=== PATIENT | female | born 1980 | race Caucasian/White ===

== ENCOUNTER → 2018-09-14 | Outpatient (CLI) | payer MEDICAID ==
[2018-09-14 12:17] LABS: FREE T4 (FREE THYROXINE) 0.79 NG/DL (0.70-1.48)
--- NOTE | 2018-09-14 19:49 | Diagnostic Imaging Report ---
CLINICAL INDICATION: Patient with thyroid cysts. COMPARISONS: None. FINDINGS: THYROID NODULES: There is a 1.1 cm x 1.2 cm x 0.7 cm isoechoic/hypoechoic nodule involving the region of the isthmus. There are two subcentimeter hypoechoic nodules seen superiorly adjacent to the larger described nodule involving the isthmus. There are no other significant thyroid nodules seen. THYROID GLAND: Besides the thyroid nodules, the thyroid gland has normal size, shape and echogenicity. The right lobe measures 5.6 cm x 2.3 cm x 1.9 cm and the left lobe measures 5.4 cm x 1.6 cm x 1.9 cm in their three dimensions. ISTHMUS: The isthmus is upper limits of normal and measures 5.6 mm in thickness. IMPRESSION: There are three thyroid gland nodules involving the region of the isthmus with the largest one measuring 1.2 cm, as described above. Otherwise, the thyroid gland is unremarkable. Dictated on workstation # [id number]
== END ==
LOC: RAD 10:51
PROVIDERS: ATTEND Pediatrics
DX: E04.2 Nontoxic multinodular goiter (principal)
CPT/HCPCS: 36415; 76536; 84439; 84443

== ENCOUNTER 2018-10-15 11:39 | Emergency (ER) | payer MEDICAID ==
[~2018-10-15] VITALS: Ht 157.5 cm; Wt 65.8 kg
--- OUTSIDE RECORDS SUMMARY | 2018-10-15 11:43 | XMS REPORT | Continuity of Care Document ---
Author Organization Unknown Address Unknown Allergies There is no data. Medications There is no data. Problems There is no data. Procedures There is no data. Results Test Result Range SYPHILIS (RPR W/ REFLEX CONFIRMATION) - 08/28/18 11:15 RPR (DX) W/REFL TITER AND CONFIRMATORY TESTING NON-REACTIVE NON-REACTIVE HEP B SURFACE ANTIGEN - 08/28/18 11:15 HEPATITIS B SURFACE ANTIGEN NON-REACTIVE NON-REACTIVE HCG, QUANTITATIVE - 08/28/18 11:15 H[place], [place] [address] mIU/mL NRG RUBELLA IMMUNE STATUS - 08/28/18 11:15 RUBELLA ANTIBODY (IGG) 3.05 index NRG SUREPATH PAP RFX HPV mRNA E6/E7 - 08/28/18 13:36 CLINICAL INFORMATION: NRG LMP: NRG PREV. PAP: NRG PREV. 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 Visit Date/Time Discharge Status Pt. Type Provider Facility Loc./Unit Complaint [id number] 10/01/2018 09:45:00 10/01/2018 23:59:59 [id number] 10/01/2018 09:45:00 Document Registration [id number] 09/25/2018 10:30:00 Document Registration [id number] 08/28/2018 10:15:00 Document Registration
[2018-10-15] MEDS ORDERED: APAP 300 MG/CODEINE 30 MG (TYLENOL #3) TAB PO ONE (12:15)
[2018-10-15 12:21] LABS: BACTERIA,URINE FEW /HPF; BILIRUBIN,URINE NEGATIVE (NEGATIVE); CLARITY,URINE CLEAR; COLOR,URINE YELLOW; GLUCOSE, URINE (UA) NEGATIVE (NEGATIVE); KETONES,URINE NEGATIVE (NEGATIVE); LEUKOCYTE ESTERASE ,URINE NEGATIVE (NEGATIVE); NITRITE,URINE NEGATIVE (NEGATIVE); PH,URINE 6 (5-9); PROTEIN,URINE NEGATIVE (NEGATIVE); SQUAMOUS EPITHELIAL CELL,UR >50 /HPF; UROBILINOGEN,URINE 1 MG/DL (NORMAL)
[2018-10-15 12:25] LABS: BASOPHILS % (AUTO) 0 % (0-10); EOSINOPHILS # (AUTO) 0.1 10^3/uL (0.0-0.3); EOSINOPHILS % (AUTO) 1 % (0-10); HEMATOCRIT 36 % (35-52); HEMOGLOBIN 11.9 G/DL (11.5-16.0); LYMPHOCYTES # (AUTO) 1.9 X 10^3 (1.0-4.0); LYMPHOCYTES % (AUTO) 21 % (12-44); MEAN CORPUSCULAR HEMOGLOBIN 27 PG (25-34); MEAN CORPUSCULAR HGB CONC 33 G/DL (32-36); MEAN CORPUSCULAR VOLUME 82 FL (80-99); MEAN PLATELET VOLUME 9.5 FL (7.4-10.4); MONOCYTES # (AUTO) 0.5 X 10^3 (0.0-1.0); MONOCYTES % (AUTO) 5 % (0-12); NEUTROPHILS # (AUTO) 6.7 X 10^3 (1.8-7.8); NEUTROPHILS % (AUTO) 73 % (42-75); PLATELET COUNT 322 10^3/uL (130-400); RED CELL DISTRIBUTION WIDTH 12.8 % (10.0-14.5); WHITE BLOOD COUNT 9.2 10^3/uL (4.3-11.0)
[2018-10-15 12:44] LABS: BUN/CREATININE RATIO 10; CARBON DIOXIDE 19 MMOL/L (21-32); CHLORIDE 101 MMOL/L (98-107); CREATININE SERUM 0.51 MG/DL (0.60-1.30); GFR ESTIMATED > 60; GLUCOSE 110 MG/DL (70-105); POTASSIUM 3.7 MMOL/L (3.6-5.0); SODIUM 135 MMOL/L (135-145)
[2018-10-15 12:45] LABS: ALANINE AMINOTRANSFERASE 8 U/L (0-55); ALBUMIN 3.5 GM/DL (3.2-4.5); ALKALINE PHOSPHATASE 50 U/L (40-136); BILIRUBIN,TOTAL 0.2 MG/DL (0.1-1.0); TOTAL PROTEIN 6.5 GM/DL (6.4-8.2)
--- NOTE | 2018-10-15 12:51 | ED Abdominal Pain ---
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 STATES SHE IS 11 WEEKS AND SHE HAD EXPERIENCED SOME SPOTTING LAST WEEK. DENIES ANY SPOTTING AT THIS TIME BUT REPORTS THAT THE PAIN BEGAN YESTERDAY AND HAS PROGRESSED. Sepsis Screen: No Definite Risk Source of Information: Patient, Family Exam Limitations: No Limitations History of Present Illness Date Seen by Provider: Oct 15, 2018 Time Seen by Provider: 12:46 Initial Comments This 37 year-old G 10 P 7 female presents in the 11th week of her current gestation. The patient is complaining of left lower abdominal pain that began yesterday and has been quite intense. Patient had back pain approximately a week ago and went to her doctor's office for urinalysis. The patient subsequently experienced a slight amount of spotting which has spontaneously resolved. The patient denies associated dysuria, frequency, associated flank pain, nausea, vomiting, diarrhea, cough, fever or chill, headache or stiff neck, or radiation of the sharp left lower quadrant pain. The patient's pain is made worse by pushing on the abdomen. Allergies and Home Medications Allergies Coded Allergies: fentanyl (Verified Allergy, Unknown, 10/15/18) Patient states not an allergy but makes her loopy and tearful latex (Verified Allergy, Unknown, 10/15/18) morphine (Verified Allergy, Unknown, 10/15/18) Patient states not an allergy but makes her loopy and tearful sulfamethoxazole (Verified Allergy, Unknown, 10/15/18) trimethoprim (Verified Allergy, Unknown, 10/15/18) Patient Home Medication List Home Medication List Reviewed: Yes Review of Systems Review of Systems Constitutional: No chills EENTM: No Symptoms Reported Respiratory: Denies Cough, Denies SOA at Rest Cardiovascular: Denies Chest Pain, Denies Palpitations Gastrointestinal: See HPI, Abdominal Pain; Denies Diarrhea, Denies Nausea, Denies Vomiting Genitourinary: Denies Burning, Denies Drainage, Denies Frequency, Denies Flank Pain, Denies Hematuria Musculoskeletal: No back pain Skin: No change in color, No rash Psychiatric/Neurological: No Symptoms Reported Endocrine: No Symptoms Reported Hematologic/Lymphatic: No Symptoms Reported Past Ulwwzxu-Qzyuwm-Iwjedf Hx Past Med/Social Hx: Reviewed Nursing Past Med/Soc Hx Patient Social History Alcohol Use: Denies Use Recreational Drug Use: No Smoking Status: Never a Smoker 2nd Hand Smoke Exposure: No Recent Foreign Travel: No Contact w/Someone Who Travel: No Recent Infectious Disease Expo: No Recent Hopitalizations: No Physical Abuse: No Sexual Abuse: No Mistreated: No Fear: No Immunizations Up To Date Tetanus Booster (TDap): Less than 5yrs Seasonal Allergies Seasonal Allergies: No Past Medical History Surgeries: Yes Gallbladder Respiratory: No Cardiac: No Neurological: No Hx : 10 Hx Para: 7 Hx Total # of Abortions (Sp): 2 Female Reproductive Disorders: Pelvic Inflammatory Dis, Ovarian Cyst Genitourinary: No Gastrointestinal: Yes Gastroesophageal Reflux, Hiatal Hernia, Irritable Bowel Musculoskeletal: No Endocrine: Yes (Thyroid cysts) HEENT: No Cancer: No Psychosocial: Yes Anxiety Integumentary: No Blood Disorders: Yes Physical Exam Vital Signs Vital Signs - First Documented 10/15/18 11:42 Temp 99.0 Pulse 83 Resp 18 B/P (MAP) 138/80 (99) Pulse Ox 99 O2 Delivery Room Air Capillary Refill : Less Than 3 Seconds Height/Weight/BMI Height: 5'2.00" Weight: 145lbs. oz. 65.716098px; BMI Method:Stated General Appearance: WD/WN, no apparent distress HEENT: normal ENT inspection Neck: full range of motion, normal inspection Respiratory: lungs clear Cardiovascular: regular rate, rhythm Gastrointestinal: normal bowel sounds, tenderness (N left lower quadrant. No masses or rebound are noted) Genital/Rectal: other (bedside ultrasound demonstrated a intrauterine with a heart rate of 150 and spontaneous motion.) Extremities: normal range of motion, normal inspection Back: normal inspection Neurologic/Psychiatric: no motor/sensory deficits, alert, normal mood/affect Skin: normal color, warm/dry Progress/Results/Core Measures Results/Orders Lab Results Laboratory Tests Test 10/15/18 11:45 10/15/18 12:20 Range/Units Urine Color YELLOW Urine Clarity CLEAR Urine pH 6 5-9 Urine Specific Flora <=1.005 1.016-1.022 Urine Protein NEGATIVE NEGATIVE Urine Glucose (UA) NEGATIVE NEGATIVE Urine Ketones NEGATIVE NEGATIVE Urine Nitrite NEGATIVE NEGATIVE Urine Bilirubin NEGATIVE NEGATIVE Urine Urobilinogen 1 NORMAL MG/DL Urine Leukocyte Esterase NEGATIVE NEGATIVE Urine RBC (Auto) NEGATIVE NEGATIVE Urine RBC NONE /HPF Urine WBC NONE /HPF Urine Squamous Epithelial Cells >50 H /HPF Urine Crystals NONE /LPF Urine Bacteria FEW H /HPF Urine Casts NONE /LPF Urine Mucus NEGATIVE /LPF Urine Culture Indicated NO White Blood Count 9.2 4.3-11.0 10^3/uL Red Blood Count 4.35 4.35-5.85 10^6/uL Hemoglobin 11.9 11.5-16.0 G/DL Hematocrit 36 35-52 % Mean Corpuscular Volume 82 80-99 FL Mean Corpuscular Hemoglobin 27 25-34 PG Mean Corpuscular Hemoglobin Concent 33 32-36 G/DL Red Cell Distribution Width 12.8 10.0-14.5 % Platelet Count 322 130-400 10^3/uL Mean Platelet Volume 9.5 7.4-10.4 FL Neutrophils (%) (Auto) 73 42-75 % Lymphocytes (%) (Auto) 21 12-44 % Monocytes (%) (Auto) 5 0-12 % Eosinophils (%) (Auto) 1 0-10 % Basophils (%) (Auto) 0 0-10 % Neutrophils # (Auto) 6.7 1.8-7.8 X 10^3 Lymphocytes # (Auto) 1.9 1.0-4.0 X 10^3 Monocytes # (Auto) 0.5 0.0-1.0 X 10^3 Eosinophils # (Auto) 0.1 0.0-0.3 10^3/uL Basophils # (Auto) 0.0 0.0-0.1 10^3/uL My Orders Orders - MAURO FIELDS MD Cbc With Automated Diff (10/15/18 12:06) Comprehensive Metabolic Panel (10/15/18 12:06) Ua Culture If Indicated (10/15/18 12:06) Erythrocyte Sedimentation Rate (10/15/18 12:06) Acetaminophen/Codeine Tablet (Tylenol W/ (10/15/18 12:15) Medications Given in ED Current Medications Medications Dose Ordered Sig/Vito Route Start Time Stop Time Status Last Admin Dose Admin Acetaminophen/ Codeine Phosphate 1 tab ONCE ONCE PO 10/15/18 12:15 10/15/18 12:16 DC 10/15/18 12:26 1 TAB Vital Signs/I&O 10/15/18 11:42 Temp 99.0 Pulse 83 Resp 18 B/P (MAP) 138/80 (99) Pulse Ox 99 O2 Delivery Room Air Blood Pressure Mean: 99 Progress Progress Note : Time: 12:50 Progress Note The patient's laboratory evaluation including urinalysis, complete metabolic panel, and CBC were unremarkable. The patient's sedimentation rate is pending. After telephone consultation with Dr. Barone the patient was given a Tylenol 3 which significantly relieved her pain. Per Dr. Barone recommendation patient was discharged with prescription for Tylenol No. 3, asked return the emergency Department should any further problems or questions, and to follow-up with Dr. Deras on Friday. Departure Impression Primary Impression: Abdominal pain Qualified Codes: R10.32 - Left lower quadrant pain Disposition: HOME, SELF-CARE Condition: Improved Departure-Patient Inst. Decision time for Depature: 12:51 Referrals: PAWEL MEADOWS MD (PCP/Family) Primary Care Physician CAN BARONE DO Patient Instructions: Acute Abdomen (Belly Pain), Adult (DC) Add. Discharge Instructions: Tylenol No. 3 for pain. Close follow-up with Dr. Barone Friday. Return if any problems or questions. All discharge instructions reviewed with patient and/or family. Voiced understanding. Scripts Acetaminophen with Codeine (Tylenol with Codeine #3 Tablet) 1 Each Tablet 1 EACH PO Q4H PRN for PAIN-MILD TO MODERATE for 7 Days, #20 TAB Prov: MAURO FIELDS MD 10/15/18 MAURO FIELDS MD Oct 15, 2018 12:51
[2018-10-15 12:54] LABS: ERYTHROCYTE SEDIMENTATION RATE 24 MM/HR (0-20)
[2018-10-15] MEDS ORDERED: ACET-789 PO (12:54)
[2018-10-15 12:59] VITALS: BP 135/80
== END 2018-10-15 12:59 | disposition home or self-care (01) ==
LOC: EDUNIT# 11:39 → ER FS 11:40
DX: O26.891 Other specified pregnancy related conditions, first trimester (principal); R10.32 Left lower quadrant pain; O99.611 Diseases of the digestive system complicating pregnancy, first trimester; K21.9 Gastro-esophageal reflux disease without esophagitis; K58.9 Irritable bowel syndrome, unspecified; O99.341 Other mental disorders complicating pregnancy, first trimester; F41.9 Anxiety disorder, unspecified; Z88.5 Allergy status to narcotic agent; Z91.040 Latex allergy status; Z88.2 Allergy status to sulfonamides; Z88.1 Allergy status to other antibiotic agents; Z3A.11 11 weeks gestation of pregnancy
CPT/HCPCS: 36415; 80053; 81000; 85025; 85652; 99283

== ENCOUNTER → 2018-12-01 | Outpatient (CLI) | payer MEDICAID ==
[~2018-12-01] MED LIST: ACET-789 PO
[2018-12-01 12:47] LABS: FREE T4 (FREE THYROXINE) 0.68 NG/DL (0.70-1.48)
--- NOTE | 2018-12-01 13:39 | Diagnostic Imaging Report ---
INDICATION: Thyroid nodules. COMPARISON: Correlation is made with prior study from 09/14/2018. FINDINGS: The right lobe of the thyroid measures 5.3 x 1.6 x 1.7 cm and the left lobe measures 4.5 x 1.5 x 1.8 cm. Isthmus is 5 mm in thickness. Hypoechoic nodule within the isthmus measures approximately 1.2 x 0.7 x 1.1 cm, similar to prior exam. Adjacent subcentimeter hypoechoic nodules are also similar to prior exam. No new mass is seen. IMPRESSION: Stable thyroid nodules. However, this only demonstrates approximately two to three months of stability. Followup should be obtained in approximately 6-12 months to confirm stability. Dictated by: Dictated on workstation # [id number]
== END ==
LOC: RAD 11:54
PROVIDERS: ATTEND Pediatrics
DX: E04.2 Nontoxic multinodular goiter (principal)
CPT/HCPCS: 36415; 76536; 84439; 84443

== ENCOUNTER 2019-03-24 17:55 | Inpatient (IN) | payer BC, MEDICAID ==
[~2019-03-24] VITALS: Ht 157.5 cm; Wt 85.0 kg
[2019-03-24] VITALS (9 sets, daily range): BP systolic 113–150; BP diastolic 59–84
[2019-03-24] MEDS ORDERED: FLU QUADRIvalent (5+ YOA) 2019-2020 (AFLURIA) 0.5 ML IM ONE (18:45)
[2019-03-24] MEDS ORDERED: D5 LR IV SOLUTION 1,000 ML IV SCH (18:53)
[2019-03-24] MEDS ORDERED: AMPICILLIN FOR IV USE 2,000 MG in WATER (STERILE) FOR INJECTION 14.8 ML IV NR (18:55)
[2019-03-24] MEDS ORDERED: BETAMETHASONE ACE/NA PHOS 6 MG/ML (CELESTONE SOLUSPAN) IM NR (19:00)
[2019-03-24 19:12] LABS: BASOPHILS % (AUTO) 0 % (0-10); EOSINOPHILS % (AUTO) 1 % (0-10); HEMATOCRIT 35 % (35-52); HEMOGLOBIN 11.5 G/DL (11.5-16.0); LYMPHOCYTES # (AUTO) 1.9 X 10^3 (1.0-4.0); LYMPHOCYTES % (AUTO) 21 % (12-44); MEAN CORPUSCULAR HEMOGLOBIN 28 PG (25-34); MEAN CORPUSCULAR HGB CONC 33 G/DL (32-36); MEAN CORPUSCULAR VOLUME 84 FL (80-99); MEAN PLATELET VOLUME 10.5 FL (7.4-10.4); MONOCYTES # (AUTO) 0.8 X 10^3 (0.0-1.0); MONOCYTES % (AUTO) 9 % (0-12); NEUTROPHILS # (AUTO) 6.1 X 10^3 (1.8-7.8); NEUTROPHILS % (AUTO) 69 % (42-75); PLATELET COUNT 258 10^3/uL (130-400); RED CELL DISTRIBUTION WIDTH 13.1 % (10.0-14.5); WHITE BLOOD COUNT 8.8 10^3/uL (4.3-11.0)
--- NOTE | 2019-03-24 20:21 | Discharge Instructions ---
Discharge Instructions Discharge Medications New, Converted or Re-Newed RX: Other Patient Instructions Return to The Hospital For: As directed Activity & Diet Discharge Diet: No Restrictions Activity as Tolerated: No Orders-Post D/C & Referrals Follow Up Appt: Call to make follow up appt. for patient in 6 weeks with your doctor Activity Per routine post vaginal delivery instructions. Please call in RX to patient pharmacy. Diet as tolerated Patient may shower or tub bathe as desired. NACHO CLARK MD Mar 24, 2019 20:21 POS
--- NOTE | 2019-03-24 20:25 | History & Physical ---
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 Barone for whom I'm covering. She presents at 35 weeks gestation in labor with her cervix dilated 4 cm. Her records are not available to me. She reports having had prior babies at 34 and 35 weeks gestation. She reports no problems with this . She reports that her cervix has not been checked today. Reports that a GBS culture has not been done to date. She denies rupture membranes or bleeding. She does report that what she feels the contractions and pressure is identical to the contractions and pressure she has felt in the past when she delivered. She feels certain she is in labor and this point to deliver. Allergies are to latex and morphine and fentanyl and Septra Medications are vitamins Medical social and surgical histories are per the antepartum record HEENT exam is normal except for relatively poor dentition Neck is supple no lymphadenopathy no thyromegaly Abdomen is gravid soft nontender nondistended Extremities show no clubbing or cyanosis Pelvic exam reveals a cervix that is 4-5 cm dilated with a somewhat bulging bag vertex presentation Assessment and plan labor at 35 weeks gestation. We have started ampicillin for GBS prophylaxis. Patient reports that she progresses rapidly as we are preparing for a delivery imminently. 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 35 week spontaneous labor Allergies and Home Medications Allergies Coded Allergies: fentanyl (Verified Allergy, Unknown, 10/15/18) Patient states not an allergy but makes her loopy and tearful latex (Verified Allergy, Unknown, 10/15/18) morphine (Verified Allergy, Unknown, 10/15/18) Patient states not an allergy but makes her loopy and tearful sulfamethoxazole (Verified Allergy, Unknown, 10/15/18) trimethoprim (Verified Allergy, Unknown, 10/15/18) Home Medications No Active Prescriptions or Reported Meds Patient Home Medication List Home Medication List Reviewed: Yes NACHO CLARK MD Mar 24, 2019 20:25 POS
[2019-03-24] MEDS ORDERED: IBUP-1780 PO (20:26)
[2019-03-24] MEDS ORDERED: DOCU-143 PO (20:26)
[2019-03-24] MEDS ORDERED: CATHETER FLUSH 10 ML SYR IV SCH (22:00)
[2019-03-24] MEDS ORDERED: OXYTOCIN/NORMAL SALINE 500 ML IV ONE (22:08)
[2019-03-24] MEDS ORDERED: LIDOCAINE/EPI 2% 1:200,00 (XYLOCAINE) 10 ML VIAL ONE (22:08)
[2019-03-24] MEDS ORDERED: AMPICILLIN FOR IV USE 1,000 MG in WATER (STERILE) FOR INJECTION 7.4 ML IV SCH (23:00)
[2019-03-24] MEDS ORDERED: KETOROLAC 30 MG/ML VIAL ONE (23:07)
[2019-03-24] MEDS ORDERED: OXYTOCIN/NORMAL SALINE 500 ML IV SCH (23:07)
[2019-03-24] MEDS ORDERED: BENZOCAINE/MENTHOL (DERMOPLAST) 56 ML CAN TP ONE (23:08)
[2019-03-24] MEDS: KETOROLAC 30 MG/ML VIAL IVP SCH (23:12)
[2019-03-24] MEDS ORDERED: TETANUS,DIPTH,PERTUSS P/F (BOOSTRIX) 0.5 ML VIAL IM ONE (23:15)
[2019-03-24] MEDS ORDERED: oxyCODONE/APAP 5/325MG (PERCOCET 5) TABLET PO PRN (23:15)
[2019-03-24] MEDS ORDERED: ONDANSETRON 4 MG/2 ML (SDV) Z0FRAN IVP PRN (23:15)
[2019-03-24] MEDS ORDERED: BENZOCAINE/MENTHOL (DERMOPLAST) 56 ML CAN TP PRN (23:15)
[2019-03-24] MEDS ORDERED: MEASLES,MUMPS,RUBELLA 1 EA INJ SC ONE (23:15)
[2019-03-25] VITALS (7 sets, daily range): BP systolic 109–136; BP diastolic 58–72
[2019-03-25] MEDS: KETOROLAC 30 MG/ML VIAL IVP SCH (05:38)
--- NOTE | 2019-03-25 07:50 | Progress Note ---
Standard Progress Note Progress Notes/Assess & Plan Date Seen by a Provider: Mar 25, 2019 Time Seen by a Provider: 07:48 Progress/Assessment & Plan This patient is without complaint. She is ambulating, voiding, tolerating oral intake well Vital Signs 03/24/19 03/25/19 18:18 05:30 Temp 36.6 Pulse 77 Resp 18 B/P (MAP) 112/67 (82) Pulse Ox 97 O2 Delivery Room Air Signs are stable. Patient is afebrile. Fundus is firm below the umbilicus and nontender. Extremities show no clubbing or cyanosis. There is no Homans sign. Assessment and plan post day number 1 status post spontaneous vaginal delivery at 35 weeks gestation. Patient is doing well and will have routine convalescence care NACHO CLARK MD Mar 25, 2019 07:50 POS
[2019-03-25] MEDS: DOCUSATE SODIUM 100 MG (COLACE) CAP PO SCH ×2 (09:13→20:36)
--- NOTE | 2019-03-25 09:39 | OPERATIVE REPORT ---
DATE OF SERVICE: 03/24/2019 DELIVERY NOTE The patient delivered by and spontaneous vaginal delivery at 35 weeks gestation, a viable female infant with Apgars of 9 and 10 at 1 and 5 minutes respectively. Weight is 5 lbs. 8 oz. Cord blood gas is pending. time of 22:30. The was delivered over an intact perineum under no analgesia. The infant was bulb suctioned on delivery of the head and again on completion of delivery. When the cord was pulseless, it was doubly clamped, father cut the cord, the baby was passed to mom's abdomen. Placenta delivered fairly promptly spontaneously Sosa. It was somewhat atretic appearing and had about a 5% marginal abruption. The placenta was sent to pathology for permanent section. The cervix, vagina, rectum, and perineum were examined and found intact, except for a couple minor superficial abrasions, particularly on the inner right labia minora. Those were hemostatic and required no repair. Sponge and needle counts were correct on completion of the delivery and the inspection. The baby remained with the mom. Mom remained in the LDR for recovery. Blood loss was around 150 mL. Job ID: [id number] DocumentID: [id number] Dictated Date: 03/24/2019 22:41:43 Stone Repairer Date: 03/25/2019 06:36:09 Dictated By: NACHO CLARK MD MTDD
[2019-03-25] MEDS: IBUPROFEN 800 MG (MOTRIN) TAB PO SCH ×4 (12:00→18:06)
[2019-03-26 00:02] VITALS: BP 120/66
[2019-03-26] MEDS: IBUPROFEN 800 MG (MOTRIN) TAB PO SCH ×3 (00:03→11:54)
[2019-03-26 06:05] VITALS: BP 114/74
[2019-03-26 07:35] VITALS: BP 119/78
[2019-03-26] MEDS: DOCUSATE SODIUM 100 MG (COLACE) CAP PO SCH (07:40)
--- NOTE | 2019-03-26 08:06 | Progress Note ---
Standard Progress Note Progress Notes/Assess & Plan Date Seen by a Provider: Mar 26, 2019 Time Seen by a Provider: 08:04 Progress/Assessment & Plan This patient is without complaint. She is ambulating, voiding, tolerating oral intake well Vital Signs 03/24/19 03/25/19 18:18 05:30 Temp 36.6 Pulse 77 Resp 18 B/P (MAP) 112/67 (82) Pulse Ox 97 O2 Delivery Room Air Signs are stable. Patient is afebrile. Fundus is firm below the umbilicus and nontender. Extremities show no clubbing or cyanosis. There is no Homans sign. Assessment and plan post day number 1 status post spontaneous vaginal delivery at 35 weeks gestation. Patient is doing well and will have routine convalescence care March 26, 2019 This patient is without complaint, she is ambulating, voiding, tolerating oral intake well, and requesting discharge home. Vital Signs Date Time Temp Pulse Resp B/P (MAP) Pulse Ox O2 Delivery O2 Flow Rate FiO2 03/26/19 06:05 36.4 71 18 114/74 (87) 97 Room Air 03/26/19 00:02 36.8 86 18 120/66 (84) 96 Room Air 03/25/19 19:39 36.6 86 18 119/65 (83) 96 Room Air 03/25/19 15:29 36.6 85 18 118/70 (86) 99 Room Air 03/25/19 14:00 36.6 86 18 126/72 (90) 95 Room Air Vital signs are stable. Patient is afebrile Physical exam is benign Assessment and plan day number 2 plan for discharge home Final Diagnosis 35 week spontaneous vaginal delivery NACHO CLARK MD Mar 26, 2019 08:06 POS
[2019-03-26 10:34] VITALS: BP 120/72
== END 2019-03-26 15:05 | disposition home or self-care (01) | DRG 807 ==
LOC: WSo 17:55 → LDRP 17:55 → WSo 18:51 → LDRP 18:52
PROVIDERS: ADMIT Obstetrics & Gynecology; ATTEND Obstetrics & Gynecology
PROC: 10E0XZZ Delivery of Products of Conception, External Approach (ICD-10-PCS; principal; 2019-03-24)
DX: O60.14X0 Preterm labor third trimester with preterm delivery third trimester, not applicable or unspecified (principal); Z37.0 Single live birth; O71.89 Other specified obstetric trauma; Z3A.35 35 weeks gestation of pregnancy; Z23 Encounter for immunization
CPT/HCPCS: 36415; 85025; 86850; 86900; 86901; 90715; 99212

== ENCOUNTER → 2019-07-08 | Outpatient (CLI) | payer BC, MEDICAID ==
[~2019-07-08] MED LIST changes: +DOCU-143 PO; +IBUP-1780 PO
--- NOTE | 2019-07-08 10:53 | Diagnostic Imaging Report ---
INDICATION: Right shoulder fracture, follow-up. TIME OF EXAM: 10:33 AM No prior radiographs available for comparison. FINDINGS: Glenohumeral and acromioclavicular alignment are normal. Acromiohumeral space is normal. Fracture involving the greater tuberosity of the proximal humerus is noted. Fracture lines do remain visible. There is some fragmentation. No other abnormalities are identified. IMPRESSION: Comminuted fracture of the greater tuberosity of the proximal right humerus. Dictated by: Dictated on workstation # [id number]
== END ==
LOC: RAD FS 10:27
PROVIDERS: ATTEND Nurse Practitioner
DX: S42.254A Nondisplaced fracture of greater tuberosity of right humerus, initial encounter for closed fracture (principal); X58.XXXA Exposure to other specified factors, initial encounter
CPT/HCPCS: 73030